=== PATIENT | male | born 1955 | race Caucasian/White ===

== ENCOUNTER 2019-04-23 16:01 | Outpatient (RCR) | payer OTHER ==
[~2019-04-23 16:01] MED LIST: AMLODIPINE BESY10 MG PO; BENICAR20 MG PO; HYDROCHLOROTHIA25 MG PO; HYDROCODON-ACE1 EA15; JENTADUETO 2.51 EAC2 PO; [UNRECOGNIZED DRUG - OTHER]
== END 2019-04-26 ==
LOC: PT 16:01
PROVIDERS: ATTEND Specialist
DX: M75.42 Impingement syndrome of left shoulder (principal); M25.512 Pain in left shoulder; M25.612 Stiffness of left shoulder, not elsewhere classified

== ENCOUNTER → 2020-03-12 | Outpatient (CLI) | payer MEDICARE, OTHER | LOC: MRI 14:54 | PROVIDERS: ATTEND Internal Medicine | DX: H81.10 Benign paroxysmal vertigo, unspecified ear (principal); H81.4 Vertigo of central origin | CPT/HCPCS: 70544; 70551 ==

== ENCOUNTER → 2022-01-24 | Outpatient (CLI) | payer MEDICARE | LOC: RAD 12:12 | PROVIDERS: ATTEND Internal Medicine | DX: Z01.818 Encounter for other preprocedural examination (principal) | CPT/HCPCS: 71046 ==

== ENCOUNTER 2022-02-27 05:41 | Observation (INO) | payer MEDICARE ==
[2022-02-24 10:14] LABS: BASOPHILS % 0.5 % (0.0-1.0); EOSINOPHILS # (AUTO) 0.2 (0.0-0.4); EOSINOPHILS % 2.5 % (0.0-6.0); HEMATOCRIT 54.1 % (38.2-49.6); HEMOGLOBIN 17.5 g/dL (14.0-18.0); LYMPHOCYTES # (AUTO) 1.8 (1.0-3.2); LYMPHOCYTES % 20.1 % (18.0-39.1); MEAN CORPUSCULAR HEMOGLOBIN 27.5 pg (28-32); MEAN CORPUSCULAR HGB CONC 32.3 g/dL (31-35); MEAN CORPUSCULAR VOLUME 84.9 fL (81-99); MONOCYTES # (AUTO) 0.7 (0.2-0.8); MONOCYTES % 7.6 % (4.4-11.3); PLATELET COUNT 240 x10e3/uL (140-360); RED BLOOD COUNT 6.37 x10e6/uL (4.3-5.7)
[2022-02-24 10:43] LABS: ANION GAP 14.3 mmol/L (8-16); CALCIUM 9.3 mg/dL (8.4-10.2); CREATININE, SERUM 0.86 mg/dL (0.72-1.25); POTASSIUM 4.3 mmol/L (3.5-5.1)
[~2022-02-27] VITALS: Ht 182.9 cm; Wt 124.7 kg
[~2022-02-27 05:41] MED LIST changes: +CELEBREX100 MG PO; +COQ-10100 MG PO; +LEVOFLOXACIN250 MG PO; +LOSARTAN POTASS25 MG PO; +PRESERVISION A1 EAC4 PO; +SYNJARDY 5-1,01 EACH PO; +VITAMIN B12 INJ; +WAL-FEX ALLERGY60 MG PO
[2022-02-27] MEDS ORDERED: GABAPENTIN 300 MG CAP ONE (06:10)
[2022-02-27] MEDS ORDERED: CELECOXIB 200 MG CAP ONE (06:10)
[2022-02-27] MEDS ORDERED: DEXAMETHASONE SOD PHOS 10 MG/1 ML VIAL ONE (06:10)
[2022-02-27] MEDS ORDERED: Vancomycin IV 1,000 MG ONE (06:30)
[2022-02-27] MEDS ORDERED: TRANEXAMIC ACID 10 ML ONE (06:30)
[2022-02-27] MEDS ORDERED: SODIUM CHLORIDE 0.9% 500ML 500 ML ONE (06:30)
[2022-02-27] MEDS ORDERED: FENTANYL CITRATE/PF 100MCG/2 ML INJ ONE ×3 (06:31→19:30)
[2022-02-27] MEDS ORDERED: PROPOFOL IV EMULSION 10 MG/ML 20 ML VIAL ONE (06:32)
[2022-02-27] MEDS ORDERED: ROPIVACAINE 246.25 MG, EPINEPHRINE HCL 1:1000 1ML 0.5 MG, CLONIDINE HCL 0.08 MG, KETORO... INJ ONE ×5 (07:00)
[2022-02-27] MEDS ORDERED: ZOLPIDEM TARTRATE 5 MG TAB PO PRN (08:30)
[2022-02-27] MEDS ORDERED: HYDROCODONE/APAP 5MG-325MG TAB PO PRN (08:30)
[2022-02-27] MEDS ORDERED: ONDANSETRON HCL INJ 2MG/ML 2ML 2 MG/ML VIAL IV PRN (08:30)
[2022-02-27] MEDS ORDERED: DIPHENHYDRAMINE HCL INJ 50 MG/ML VIAL IV PRN (08:30)
[2022-02-27] MEDS ORDERED: DOCUSATE SODIUM 100 MG CAP PO PRN (08:30)
[2022-02-27] MEDS ORDERED: HYDROCODONE/APAP 7.5MG-325MG 1 EA TAB PO PRN (08:30)
[2022-02-27] MEDS ORDERED: MEPERIDINE HCL INJ 25 MG/ML VIAL ONE (08:49)
[2022-02-27 09:59] VITALS: BP 146/95
[2022-02-27] MEDS ORDERED: SODIUM CHLORIDE 0.9% 1000ML 1,000 ML IV SCH (10:30)
[2022-02-27] MEDS: ASPIRIN 325 MG TAB PO SCH ×2 (11:10→16:19)
[2022-02-27 11:25] VITALS: BP 142/90
[2022-02-27 11:48] VITALS: BP 142/90
[2022-02-27 11:59] VITALS: BP 142/90
[2022-02-27] MEDS ORDERED: HYDROCODON-ACE1 EA15 PO (13:22)
[2022-02-27] MEDS ORDERED: HYDROCODON-ACE1 EA12 PO (14:36)
[2022-02-27 16:02] VITALS: BP 153/97
[2022-02-27] MEDS ORDERED: CELECOXIB 200 MG CAP PO SCH (17:00)
[2022-02-27] MEDS ORDERED: MIDAZOLAM HCL 2 MG/2 ML VIAL ONE (19:30)
[2022-02-28] MEDS ORDERED: ACETAMINOPHEN 1000 MG/100 ML IV PRN (08:30)
== END 2022-02-27 18:00 | disposition home or self-care (01) ==
LOC: OR 05:41 → PACU V 09:00 → MED/SURG3 09:43
PROVIDERS: ADMIT Specialist; ATTEND Specialist
DX: M17.11 Unilateral primary osteoarthritis, right knee (principal); Z01.818 Encounter for other preprocedural examination; Z20.822 Contact with and (suspected) exposure to COVID-19; E11.9 Type 2 diabetes mellitus without complications; I10 Essential (primary) hypertension; Z88.0 Allergy status to penicillin; Z74.09 Other reduced mobility
CPT/HCPCS: 0223U; 27447; 36415 ×2; 73560; 80048; 82948; 85025; 86850; 86900; 86920; 94799; 97110; 97116 ×2; 97161; 97530; C1713 ×2; C1776 ×4; G0378; J0171; J0690; J1100; J1885; J2175; J2704; J2795; J3010; J3370; J7030; J7040; J2250

== ENCOUNTER 2023-03-15 17:52 | Emergency (ER) | payer MEDICARE ==
[~2023-03-15] VITALS: Ht 182.9 cm; Wt 126.6 kg
[~2023-03-15 17:52] MED LIST changes: +HYDROCODON-ACE1 EA12 PO; +HYDROCODON-ACE1 EA15 PO
[2023-03-15] MEDS ORDERED: CEFDINIR300 MG PO (20:16)
[2023-03-15 20:25] VITALS: BP 156/93; PULSE 82; RESP 18; TEMP 97.8; O2SAT 96
== END 2023-03-15 20:25 | disposition home or self-care (01) ==
LOC: FSED 17:58
DX: R51.9 Headache, unspecified (principal); R29.810 Facial weakness; H74.91 Unspecified disorder of right middle ear and mastoid; E11.65 Type 2 diabetes mellitus with hyperglycemia; I10 Essential (primary) hypertension; E03.9 Hypothyroidism, unspecified
CPT/HCPCS: 70450; 80053; 85025; 99283

== ENCOUNTER → 2024-01-23 | Outpatient (REF) | payer MEDICARE ==
[~2024-01-23] MED LIST changes: +CEFDINIR300 MG PO
== END ==
LOC: RAD 09:38
PROVIDERS: ATTEND Internal Medicine
DX: I50.32 Chronic diastolic (congestive) heart failure (principal); I10 Essential (primary) hypertension
CPT/HCPCS: 93306

== ENCOUNTER 2024-12-29 12:29 | Inpatient (IN) | payer MEDICARE ==
[2024-12-24 14:12] LABS: BASOPHILS % 0.6 % (0.0-1.0); EOSINOPHILS % 2.8 % (0.0-6.0); LYMPHOCYTES % 18.6 % (18.0-39.1); MONOCYTES % 7.0 % (4.4-11.3); NEUTROPHILS % 70.5 % (38.7-80.0); RED CELL DISTRIBUTION WIDTH 13.8 % (11.7-14.4)
[2024-12-24 14:34] LABS: EST GLOMERULAR FILTRATION RATE 71.0 ML/MIN (>=60)
[~2024-12-29] VITALS: Ht 182.9 cm; Wt 128.4 kg
[~2024-12-29 12:29] MED LIST changes: +JARDIANCE10 MG; +METFORMIN HCL850 MG PO; +OZEMPIC2 MG/0.75
[2024-12-29] MEDS ORDERED: STROMECTOL3 MG PO (13:24)
[2024-12-29] MEDS ORDERED: NAPROXEN250 MG PO (13:24)
[2024-12-29] MEDS ORDERED: PROPOFOL IV EMULSION 10 MG/ML 20 ML VIAL ONE ×2 (14:33→14:56)
[2024-12-29] MEDS ORDERED: ROCURONIUM BROMIDE 0 ML IV ONE (14:33)
[2024-12-29] MEDS ORDERED: LIDOCAINE HCL 2% LOCAL INJ 5 ML SDV VIAL INJ ONE ×2 (14:33→14:56)
[2024-12-29] MEDS ORDERED: SUCCINYLCHOLINE CHLORIDE 20 MG/ML 10ML VIAL ONE (14:56)
[2024-12-29] MEDS ORDERED: FENTANYL CITRATE/PF 100MCG/2 ML INJ ONE ×2 (14:56→16:06)
[2024-12-29] MEDS ORDERED: ROCURONIUM BROMIDE 1 ML IV ONE ×2 (14:56→16:57)
[2024-12-29] MEDS ORDERED: DEXAMETHASONE SOD PHOS INJ 4 MG/ML SDV ONE (15:47)
[2024-12-29] MEDS ORDERED: ONDANSETRON HCL INJ 2MG/ML 2ML 2 MG/ML VIAL ONE (15:49)
[2024-12-29] MEDS: MORPHINE SULFATE 1 MG/ML 30ML PCA ONE (16:00)
[2024-12-29] MEDS ORDERED: ACETAMINOPHEN 1000 MG/100 ML 0 ML IV ONE (16:12)
[2024-12-29] MEDS ORDERED: SUGAMMADEX SODIUM 200 MG/2 ML VIAL IV ONE ×2 (17:11→17:23)
[2024-12-29] MEDS ORDERED: HYDROMORPHONE 2MG/ML ONE (17:11)
[2024-12-29] MEDS ORDERED: DIPHENHYDRAMINE HCL INJ 50 MG/ML VIAL IM PRN (17:30)
[2024-12-29] MEDS ORDERED: ACETAMINOPHEN 1000 MG/100 ML IV PRN (17:30)
[2024-12-29] MEDS ORDERED: NALOXONE HCL INJ 0.4 MG/ML AMP IV PRN (17:30)
[2024-12-29] MEDS ORDERED: ONDANSETRON HCL INJ 2MG/ML 2ML 2 MG/ML VIAL IV PRN (17:30)
[2024-12-29] MEDS: SODIUM CHLORIDE 0.9% 1000ML 1,000 ML IV SCH (17:30)
[2024-12-29 17:52] LABS: BASOPHILS % 0.3 % (0.0-1.0); EOSINOPHILS % 0.7 % (0.0-6.0); LYMPHOCYTES % 12.0 % (18.0-39.1); MONOCYTES % 3.4 % (4.4-11.3); NEUTROPHILS % 82.5 % (38.7-80.0); RED CELL DISTRIBUTION WIDTH 13.8 % (11.7-14.4)
[2024-12-29 18:06] LABS: EST GLOMERULAR FILTRATION RATE 76.0 ML/MIN (>=60)
[2024-12-29 18:35] VITALS: BP 146/89; PULSE 84; RESP 19; TEMP 100.1; TEMP 98.5; O2SAT 98
[2024-12-29 19:30] VITALS: PULSE 86; RESP 20; O2SAT 99
[2024-12-29 20:00] VITALS: BP 163/97; PULSE 84; RESP 18; TEMP 97.5; O2SAT 96
[2024-12-30] VITALS (12 sets, daily range): BP systolic 102–139; BP diastolic 66–88; PULSE 82–106; RESP 16–20; TEMP 97.5–99; O2SAT 93–98
[2024-12-30 05:40] LABS: BASOPHILS % 0.1 % (0.0-1.0); EOSINOPHILS % 0.0 % (0.0-6.0); LYMPHOCYTES % 4.4 % (18.0-39.1); MONOCYTES % 2.7 % (4.4-11.3); NEUTROPHILS % 92.0 % (38.7-80.0); RED CELL DISTRIBUTION WIDTH 13.4 % (11.7-14.4)
[2024-12-30 06:30] LABS: EST GLOMERULAR FILTRATION RATE 62.0 ML/MIN (>=60)
[2024-12-30] MEDS: LEVOFLOXACIN 750MG/D5W 150ML 150 ML IV ONE (07:08)
[2024-12-30] MEDS: SODIUM CHLORIDE 0.9% 250ML IRRIG IR SCH (07:08)
[2024-12-30] MEDS: MORPHINE SULFATE 1 MG/ML 30ML PCA IV PRN (07:13)
[2024-12-30] MEDS: SODIUM CHLORIDE 0.9% 1000ML 1,000 ML ONE (07:46)
[2024-12-30] MEDS: LACTATED RINGER'S 1,000 ML ONE (07:46)
[2024-12-30] MEDS: BUPIVACAINE LIPOSOME/PF 266 MG/20 ML IJ ONE (07:46)
[2024-12-30] MEDS: LEVOFLOXACIN 500MG/D5W 100ML 100 ML IV SCH (15:05)
[2024-12-31] VITALS (12 sets, daily range): BP systolic 131–157; BP diastolic 79–96; PULSE 72–96; RESP 19–20; TEMP 97.5–99; O2SAT 95–100
[2024-12-31 05:16] LABS: BASOPHILS % 0.1 % (0.0-1.0); EOSINOPHILS % 0.1 % (0.0-6.0); LYMPHOCYTES % 11.2 % (18.0-39.1); MONOCYTES % 9.4 % (4.4-11.3); NEUTROPHILS % 78.7 % (38.7-80.0); RED CELL DISTRIBUTION WIDTH 14.2 % (11.7-14.4)
[2024-12-31 05:47] LABS: EST GLOMERULAR FILTRATION RATE 70.0 ML/MIN (>=60)
[2024-12-31] MEDS: HYDROMORPHONE 1MG/1ML INJ IV PRN (11:42)
[2024-12-31] MEDS ORDERED: ACETAMINOPHEN/CODEINE 300MG - 30MG TAB PO PRN (16:30)
[2024-12-31] MEDS: SENNA-S TABLET PO SCH (17:48)
[2025-01-01] VITALS (12 sets, daily range): BP systolic 137–157; BP diastolic 76–98; PULSE 81–108; RESP 17–20; TEMP 97.1–98.5; O2SAT 95–100
[2025-01-01 05:17] LABS: BASOPHILS % 0.4 % (0.0-1.0); EOSINOPHILS % 0.8 % (0.0-6.0); LYMPHOCYTES % 14.9 % (18.0-39.1); MONOCYTES % 10.3 % (4.4-11.3); NEUTROPHILS % 73.2 % (38.7-80.0); RED CELL DISTRIBUTION WIDTH 13.8 % (11.7-14.4)
[2025-01-01 05:50] LABS: EST GLOMERULAR FILTRATION RATE 92.0 ML/MIN (>=60)
[2025-01-01] MEDS: METFORMIN HCL 500 MG TAB CR PO SCH (10:19)
[2025-01-01] MEDS: LOSARTAN POTASSIUM 25 MG TAB PO SCH (10:19)
[2025-01-01] MEDS: INDOMETHACIN 25 MG CAP PO SCH (12:04)
[2025-01-01] MEDS: METHYLPREDNISOLONE SOD SUCC 40 MG/ML VIAL 1ML IV ONE (12:04)
[2025-01-02 04:46] VITALS: BP 144/91; PULSE 78; RESP 20; TEMP 97.3; O2SAT 99
[2025-01-02 05:15] LABS: BASOPHILS % 0.2 % (0.0-1.0); EOSINOPHILS % 0.1 % (0.0-6.0); LYMPHOCYTES % 8.1 % (18.0-39.1); MONOCYTES % 10.4 % (4.4-11.3); NEUTROPHILS % 80.7 % (38.7-80.0); RED CELL DISTRIBUTION WIDTH 13.2 % (11.7-14.4)
[2025-01-02 05:43] LABS: EST GLOMERULAR FILTRATION RATE 93.0 ML/MIN (>=60)
[2025-01-02 08:00] VITALS: BP 133/91; PULSE 87; RESP 16; TEMP 97.7; O2SAT 97
[2025-01-02 08:47] VITALS: BP 133/91; PULSE 87; RESP 16; TEMP 97.7; O2SAT 97
[2025-01-02 10:32] VITALS: PULSE 93; RESP 20; O2SAT 95
[2025-01-02 12:00] VITALS: BP 126/76; PULSE 92; RESP 17; TEMP 97.6; O2SAT 97
== END 2025-01-02 16:04 | disposition home or self-care (01) | DRG 715 ==
LOC: OR 12:29 → MED/SURG 18:11
PROVIDERS: ADMIT Internal Medicine; ATTEND Internal Medicine
PROC: 07BC0ZX Excision of Pelvis Lymphatic, Open Approach, Diagnostic (ICD-10-PCS; principal; 2024-12-29 15:16)
PROC: 0TJB8ZZ Inspection of Bladder, Via Natural or Artificial Opening Endoscopic (ICD-10-PCS; 2024-12-29 15:16)
DX: C61 Malignant neoplasm of prostate (principal); I50.32 Chronic diastolic (congestive) heart failure; R35.0 Frequency of micturition; E66.01 Morbid (severe) obesity due to excess calories; E11.9 Type 2 diabetes mellitus without complications; G47.33 Obstructive sleep apnea (adult) (pediatric); I11.0 Hypertensive heart disease with heart failure; H49.01 Third [oculomotor] nerve palsy, right eye; G43.909 Migraine, unspecified, not intractable, without status migrainosus; N32.89 Other specified disorders of bladder; M17.12 Unilateral primary osteoarthritis, left knee; Z96.651 Presence of right artificial knee joint; M10.9 Gout, unspecified; M25.462 Effusion, left knee; N28.9 Disorder of kidney and ureter, unspecified; Z88.0 Allergy status to penicillin; Z68.38 Body mass index [BMI] 38.0-38.9, adult; Z79.85 Long-term (current) use of injectable non-insulin antidiabetic drugs; Z99.89 Dependence on other enabling machines and devices; Z79.82 Long term (current) use of aspirin; Z86.73 Personal history of transient ischemic attack (TIA), and cerebral infarction without residual deficits
CPT/HCPCS: 36415; 71046; 80048; 80053; 82948; 83735; 84550; 85025; 88304; 88305; 88342; 93005; 94799; J0330; J0666; J1100; J1171; J1956; J2003; J2270; J2405; J2919; J7030

== ENCOUNTER 2025-01-18 03:21 | Inpatient (IN) | payer MEDICARE ==
[2025-01-18] VITALS (7 sets, daily range): BP systolic 121–131; BP diastolic 70–80; PULSE 84–103; RESP 18–20; TEMP 97.8–98.7; O2SAT 97–100
[~2025-01-18] VITALS: Ht 182.9 cm; Wt 119.7 kg
[~2025-01-18 03:21] MED LIST changes: +NAPROXEN250 MG PO; +STROMECTOL3 MG PO
[2025-01-18] MEDS: ONDANSETRON HCL INJ 2MG/ML 2ML 2 MG/ML VIAL IV STA (04:47)
[2025-01-18] MEDS: SODIUM CHLORIDE 0.9% 1000ML 1,000 ML IV ONE ×2 (04:47→06:04)
[2025-01-18] MEDS: CEFEPIME 2 GM in SODIUM CHLORIDE 0.9% 100 ML IV ONE (04:47)
[2025-01-18] MEDS: Morphine 2mg Syringe 2 MG/ML SYR IV ONE (04:47)
[2025-01-18 04:50] LABS: BASOPHILS % 0.3 % (0.0-1.0); EOSINOPHILS % 1.0 % (0.0-6.0); LYMPHOCYTES % 11.6 % (18.0-39.1); MONOCYTES % 8.0 % (4.4-11.3); NEUTROPHILS % 78.4 % (38.7-80.0); RED CELL DISTRIBUTION WIDTH 13.2 % (11.7-14.4)
[2025-01-18 04:59] LABS: INR 0.89
[2025-01-18 05:09] LABS: EST GLOMERULAR FILTRATION RATE 77.0 ML/MIN (>=60)
[2025-01-18] MEDS ORDERED: IOPAMIDOL 370 MG/ML 100 ML INFUS..BTL INJ ONE (05:28)
[2025-01-18] MEDS ORDERED: SODIUM CHLORIDE FLUSH 10 ML SYR INJ PRN (06:15)
[2025-01-18] MEDS ORDERED: SODIUM CHLORIDE 0.9% 250ML 250 ML ONE ×2 (07:17→22:04)
[2025-01-18] MEDS ORDERED: Vancomycin IV 1 GM VIAL ONE (07:17)
[2025-01-18] MEDS ORDERED: DEXTROSE 50% SYRINGE 50 ML IV PRN (08:00)
[2025-01-18] MEDS: Vancomycin IV 2 GM in SODIUM CHLORIDE 0.9% 250ML 250 ML IV ONE (08:19)
[2025-01-18 08:49] LABS: EPITHELIAL CELLS,URINE FEW /LPF; LEUKOCYTE ESTERASE ,URINE NEGATIVE (NEGATIVE); PROTEIN,URINE DIPSTICK NEGATIVE (NEGATIVE); URINE UROBILINOGEN 0.2 mg/dL (0.2 - 1)
[2025-01-18] MEDS: ASPIRIN 81 MG ENTERIC COATED PO SCH (09:25)
[2025-01-18] MEDS: LOSARTAN POTASSIUM 25 MG TAB PO SCH (09:25)
[2025-01-18] MEDS: METOPROLOL SUCCINATE 25 MG TAB XL PO SCH (09:26)
[2025-01-18] MEDS: ENOXAPARIN SOD INJ 40 MG/0.4 ML SYR SC STA (09:26)
[2025-01-18] MEDS: INSULIN LISPRO 100 UNIT/1 ML 3ML VIAL SQ SCH (11:30)
[2025-01-18] MEDS ORDERED: ENOXAPARIN SOD INJ 40 MG/0.4 ML SYR SC SCH (17:00)
[2025-01-18] MEDS: METFORMIN HCL 500 MG TAB PO SCH (21:00)
[2025-01-18] MEDS: Morphine 2mg Syringe 2 MG/ML SYR IV PRN (21:17)
[2025-01-18] MEDS: ONDANSETRON HCL INJ 2MG/ML 2ML 2 MG/ML VIAL IV PRN (21:18)
[2025-01-18] MEDS ORDERED: VANCOMYCIN HCL 1.25 GM VIAL IV ONE (22:04)
[2025-01-18] MEDS: VANCOMYCIN 1.25GM/250 ML (PEG) 250 ML IV SCH (22:15)
[2025-01-19] VITALS (7 sets, daily range): BP systolic 96–132; BP diastolic 55–82; PULSE 77–97; RESP 17–20; TEMP 97.7–98.5; O2SAT 96–98
[2025-01-19 07:13] LABS: BASOPHILS % 0.4 % (0.0-1.0); EOSINOPHILS % 1.9 % (0.0-6.0); LYMPHOCYTES % 17.0 % (18.0-39.1); MONOCYTES % 8.7 % (4.4-11.3); NEUTROPHILS % 71.1 % (38.7-80.0); RED CELL DISTRIBUTION WIDTH 13.2 % (11.7-14.4)
[2025-01-19 07:29] LABS: INR 0.95
[2025-01-19 07:44] LABS: EST GLOMERULAR FILTRATION RATE 92.0 ML/MIN (>=60)
[2025-01-19] MEDS ORDERED: MIDAZOLAM HCL 2 MG/2 ML VIAL ONE (12:08)
[2025-01-19] MEDS ORDERED: FENTANYL CITRATE/PF 100MCG/2 ML INJ ONE (12:08)
[2025-01-19] MEDS ORDERED: SODIUM CHLORIDE 0.9% 250ML 250 ML ONE ×2 (12:08→12:10)
[2025-01-19] MEDS ORDERED: LIDOCAINE HCL 1% 30ML-PF VIAL ONE (12:10)
[2025-01-20] VITALS (9 sets, daily range): BP systolic 119–136; BP diastolic 76–94; PULSE 78–106; RESP 18–20; TEMP 97.7–98.6; O2SAT 94–99
[2025-01-20 08:04] LABS: BASOPHILS % 0.6 % (0.0-1.0); EOSINOPHILS % 2.6 % (0.0-6.0); LYMPHOCYTES % 14.3 % (18.0-39.1); MONOCYTES % 7.7 % (4.4-11.3); NEUTROPHILS % 74.1 % (38.7-80.0); RED CELL DISTRIBUTION WIDTH 13.0 % (11.7-14.4)
[2025-01-20 08:30] LABS: EST GLOMERULAR FILTRATION RATE 91.0 ML/MIN (>=60)
[2025-01-20] MEDS: Vancomycin IV 1 GM in SODIUM CHLORIDE 0.9% 250ML 250 ML IV SCH (09:42)
[2025-01-21] VITALS (7 sets, daily range): BP systolic 117–136; BP diastolic 75–86; PULSE 80–83; RESP 18; TEMP 97.4–98; O2SAT 95–98
[2025-01-21 06:48] LABS: BASOPHILS % 0.6 % (0.0-1.0); EOSINOPHILS % 2.4 % (0.0-6.0); LYMPHOCYTES % 18.1 % (18.0-39.1); MONOCYTES % 8.1 % (4.4-11.3); NEUTROPHILS % 70.1 % (38.7-80.0); RED CELL DISTRIBUTION WIDTH 13.1 % (11.7-14.4)
[2025-01-21 07:15] LABS: EST GLOMERULAR FILTRATION RATE 93.0 ML/MIN (>=60)
[2025-01-22] VITALS (8 sets, daily range): BP systolic 122–148; BP diastolic 77–98; PULSE 72–97; RESP 17–21; TEMP 97.7–98.8; O2SAT 95–100
[2025-01-22 06:49] LABS: BASOPHILS % 0.6 % (0.0-1.0); EOSINOPHILS % 2.8 % (0.0-6.0); LYMPHOCYTES % 17.1 % (18.0-39.1); MONOCYTES % 8.3 % (4.4-11.3); NEUTROPHILS % 70.7 % (38.7-80.0); RED CELL DISTRIBUTION WIDTH 13.1 % (11.7-14.4)
[2025-01-22 07:14] LABS: EST GLOMERULAR FILTRATION RATE 92.0 ML/MIN (>=60)
[2025-01-23 00:49] VITALS: BP 152/90; PULSE 86; RESP 16; TEMP 97.7; O2SAT 99
[2025-01-23 04:51] VITALS: BP 164/97; PULSE 84; RESP 12; TEMP 98.8; O2SAT 100
[2025-01-23 08:46] LABS: EST GLOMERULAR FILTRATION RATE 95.0 ML/MIN (>=60)
[2025-01-23 09:44] LABS: BASOPHILS % 0.7 % (0.0-1.0); EOSINOPHILS % 3.0 % (0.0-6.0); LYMPHOCYTES % 14.5 % (18.0-39.1); MONOCYTES % 8.1 % (4.4-11.3); NEUTROPHILS % 73.2 % (38.7-80.0); RED CELL DISTRIBUTION WIDTH 13.1 % (11.7-14.4)
[2025-01-23 10:00] VITALS: BP 142/91; PULSE 82; RESP 18; TEMP 97.6; O2SAT 97
[2025-01-23 12:53] VITALS: BP 142/81; PULSE 86; RESP 20; TEMP 98.4; O2SAT 95
[2025-01-23 17:23] VITALS: BP 138/85; PULSE 79; RESP 18; TEMP 97.2; O2SAT 96
== END 2025-01-23 18:50 | disposition home or self-care (01) | DRG 862 ==
LOC: ER 03:29 → ERHOLD 06:16 → MED/SURG3 09:10
PROVIDERS: ADMIT Internal Medicine; ATTEND Internal Medicine
PROC: 0W9J30Z Drainage of Pelvic Cavity with Drainage Device, Percutaneous Approach (ICD-10-PCS; principal; 2025-01-19)
DX: T81.43XA Infection following a procedure, organ and space surgical site, initial encounter (principal); A41.01 Sepsis due to Methicillin susceptible Staphylococcus aureus; K65.1 Peritoneal abscess; N17.0 Acute kidney failure with tubular necrosis; L03.311 Cellulitis of abdominal wall; I50.32 Chronic diastolic (congestive) heart failure; E44.0 Moderate protein-calorie malnutrition; T81.41XA Infection following a procedure, superficial incisional surgical site, initial encounter; C61 Malignant neoplasm of prostate; I11.0 Hypertensive heart disease with heart failure; G43.909 Migraine, unspecified, not intractable, without status migrainosus; E66.9 Obesity, unspecified; H49.00 Third [oculomotor] nerve palsy, unspecified eye; G47.33 Obstructive sleep apnea (adult) (pediatric); I48.0 Paroxysmal atrial fibrillation; R01.1 Cardiac murmur, unspecified; E11.65 Type 2 diabetes mellitus with hyperglycemia; Z88.0 Allergy status to penicillin; Z68.38 Body mass index [BMI] 38.0-38.9, adult; Z86.73 Personal history of transient ischemic attack (TIA), and cerebral infarction without residual deficits; Z79.84 Long term (current) use of oral hypoglycemic drugs; Z79.85 Long-term (current) use of injectable non-insulin antidiabetic drugs; Z79.82 Long term (current) use of aspirin
CPT/HCPCS: 36415; 49406; 74177; 74470; 77012; 80048; 80053; 80202; 81001; 82948; 83605; 83690; 85025; 85610; 85730; 87040; 87070; 87071; 87086; 87186; 87205; 93005; 99284; C1729; C1769; J0692; J1650; J2003; J2250; J2270; J2405; J3373; J7030; J7050; Q9967